=== PATIENT | male | born 1995 | race Caucasian/White ===

== ENCOUNTER → 2024-11-03 | Outpatient (REF) | payer OTHER | LOC: M SMT 12:40 | PROVIDERS: ATTEND Urology | DX: Z30.2 Encounter for sterilization (principal) ==

== ENCOUNTER 2025-01-12 08:35 | Day surgery (SDC) | payer OTHER ==
[~2025-01-12] VITALS: Ht 188 cm; Wt 105.1 kg
[~2025-01-12 08:35] MED LIST: GLYCOPYRROLATE INJ 0.2 MG/ML 2 ML VIAL As Ordered ONE; HYDR-4571 PO; KETOROLAC 60MG 2ML VIAL As Ordered ONE; LIDOCAINE 2% 100MG/5ML SDV (FOR ANES.) As Ordered ONE; MIDAZOLAM INJ 2MG/2ML VIAL As Ordered ONE; ONDANSETRON 4MG 2ML VIAL As Ordered ONE; ROCURONIUM BROMIDE 50MG/5ML VIAL As Ordered ONE; SUGAMMADEX SODIUM 500 MG/5 ML VIAL (BRIDION) As Ordered ONE; fentaNYL 100 MCG/2 ML INJECTION As Ordered ONE; propofoL 200 MG/20 ML VIAL As Ordered ONE
[2025-01-12] MEDS ORDERED: NS (Normal Saline) 0.9% 1,000 ML IV SCH ×2 (08:45→14:00)
[2025-01-12] MEDS ORDERED: LIDOCAINE 1% SDV 5ML VIAL PN ONE (09:10)
[2025-01-12] MEDS ORDERED: ROPIvacaine 0.5% 30ML VIAL PN ONE (09:10)
[2025-01-12] MEDS ORDERED: dexAMETHasone 10MG/1ML VIAL PRES.FREE PN ONE (09:10)
[2025-01-12] MEDS: MIDAZOLAM INJ 2MG/2ML VIAL IV PRN (09:33)
[2025-01-12] MEDS: fentaNYL 100 MCG/2 ML INJECTION IV PRN (09:33)
[2025-01-12] MEDS: ceFAZolin SOD 2 GM in IV 1 EA IV ONE (10:07)
[2025-01-12] MEDS: TRANEXAMIC ACID 100 MG/ML 10ML VIAL IV ONE (10:10)
[2025-01-12] MEDS ORDERED: ACETAMINOPHEN 1000MG/100ML IV BAG As Ordered ONE (10:14)
[2025-01-12] MEDS: TRANEXAMIC ACID 100 MG/ML 10ML VIAL As Ordered ONE (10:50)
[2025-01-12] MEDS ORDERED: HYDROmorphone HCL 2MG/ML 1ML VIAL As Ordered ONE (12:00)
[2025-01-12] MEDS: VANCOMYCIN 1000MG/20ML VIAL As Ordered ONE (12:40)
[2025-01-12] MEDS ORDERED: ceFAZolin 2 GM/D5W 50 ML IV BAG As Ordered ONE (13:31)
[2025-01-12] MEDS ORDERED: fentaNYL 100 MCG/2 ML INJECTION IV PRN (14:00)
[2025-01-12] MEDS: ONDANSETRON 4MG 2ML VIAL IV PRN (14:14)
[2025-01-12] MEDS: oxyCODONE 5MG TAB PO PRN (14:14)
[2025-01-12] MEDS: HYDROMORPHONE HCL 0.5 MG/ 0.5 ML SYRINGE IV PRN (14:14)
[2025-01-12 15:23] VITALS: BP 144/91; TEMP 98.1; O2SAT 98
== END 2025-01-12 16:10 | disposition home or self-care (01) ==
LOC: M SDC 08:35
PROVIDERS: ATTEND Orthopaedic Surgery
DX: M66.88 Spontaneous rupture of other tendons, other sites (principal); Z88.0 Allergy status to penicillin
CPT/HCPCS: 27380; 76000; C1713; J0131; J0690; J1100; J1171; J1596; J1885; J2250; J2405; J3010; J3370